=== PATIENT | male | born 1945 | race American Indian/Alaskan Native ===

== ENCOUNTER 2018-02-03 11:02 | Outpatient (CLI) | payer MEDICARE ==
--- NOTE | 2018-02-09 15:23 | Vascular Lab Report ---
LOWER EXTREMITY VENOUS DUPLEX: REASON FOR EXAM: Pain and swelling of the lower extremities. COMMENTS ON THE RIGHT: All veins visualized are freely compressible without evidence of internal echogenicity. Flow is spontaneous and phasic throughout. COMMENTS ON THE LEFT: Chronic deep venous thrombosis is seen in the proximal peroneal vein. No acute deep venous thrombosis is seen. The remaining veins visualized are freely compressible without evidence of internal echogenicity. Spontaneous and phasic flow is present proximally. Soft tissue changes are noted in the left lateral thigh. These appear to be almost cystic. Clinical correlation recommended. IMPRESSION: Chronic DVT thrombosis of the proximal left peroneal vein. No evidence of acute deep venous thrombosis in either lower extremity. Cystic appearing masses in the left lateral thigh and clinical correlation recommended.
== END 2018-02-03 11:03 | disposition home or self-care (01) ==
LOC: VAS 11:02
PROVIDERS: ATTEND Internal Medicine Hematology
DX: I82.592 Chronic embolism and thrombosis of other specified deep vein of left lower extremity (principal); C61 Malignant neoplasm of prostate; I10 Essential (primary) hypertension; E78.2 Mixed hyperlipidemia; E11.9 Type 2 diabetes mellitus without complications
CPT/HCPCS: 93970

== ENCOUNTER 2018-03-24 15:06 | Outpatient (CLI) | payer MEDICARE ==
--- NOTE | 2018-03-24 15:42 | XRay Report ---
Left knee: Pain. Routine views demonstrate normal bony contours. The articular surfaces are smooth and the joint is aligned. The joint spaces are well-preserved. The bones are well-mineralized. There is no effusion nor swelling. There is however dense calcification in the distal SFA and popliteal region. Impression: Unremarkable examination except for significant vascular calcification.
== END 2018-03-24 15:07 | disposition home or self-care (01) ==
LOC: SPVIMAG 15:06
PROVIDERS: ATTEND Internal Medicine Hematology
DX: M25.562 Pain in left knee (principal); I10 Essential (primary) hypertension; E11.9 Type 2 diabetes mellitus without complications; E78.2 Mixed hyperlipidemia